=== PATIENT | male | born 1940 | race African-American/Black ===

== ENCOUNTER 2017-08-25 00:38 | Inpatient (IN) | payer MEDICARE, OTHER ==
[~2017-08-25] VITALS: Ht 170.2 cm; Wt 77.1 kg
[2017-08-25] VITALS (7 sets, daily range): BP systolic 75–131; BP diastolic 46–84
[2017-08-25] MEDS ORDERED: ONDANSETRON HCL 4MG/2ML VIAL IV STA (00:53)
[2017-08-25] MEDS ORDERED: SODIUM CHLORIDE 0.9% 1000ML BAG (SEPSIS BOLUS) IV ONE ×2 (01:00→02:30)
[2017-08-25] MEDS ORDERED: CEFTRIAXONE 1 G PREMIX 50 ML IV ONE (01:00)
[2017-08-25] MEDS ORDERED: AZITHROMYCIN 500 MG in DEXT 5% WATER 250 ML IV ONE (01:00)
[2017-08-25 01:52] LABS: HEMATOCRIT. 24.3 % (42.0-52.0); MEAN CORPUSCULAR HEMOGLOBIN 26.4 pg (28.0-32.0); MEAN CORPUSCULAR VOLUME 80.5 fL (80.0-94.0); MEAN PLATELET VOLUME 9.3 fl (7.4-10.4); RED BLOOD CELL COUNT 3.01 mill/uL (4.7-6.1); RED CELL DISTRIBUTION WIDTH 21.4 % (11.6-14.6)
[2017-08-25 01:55] LABS: INR 1.6; PROTHROMBIN TIME 16.6 sec (9.4-11.6)
[2017-08-25 02:03] LABS: PLATELET 30 x1000/uL (130-400)
[2017-08-25 02:08] LABS: CARBON DIOXIDE 13 mEq/L (21-32); CHLORIDE 106 mEq/L (98-107); ETHANOL BLOOD < 10 mg/dL; TROPONIN I < 0.02 ng/mL (0.00-0.04)
[2017-08-25] MEDS ORDERED: CALCIUM CHLORIDE 1GM/10ML SYR IV SCH (02:30)
[2017-08-25] MEDS ORDERED: SODIUM POLYSTYRENE SULFONATE 15 G/60 ML BOT PO SCH (02:30)
[2017-08-25] MEDS ORDERED: DEXTROSE 50% WATER 50ML SYRINGE IV SCH (02:30)
[2017-08-25] MEDS ORDERED: INSULIN REGULAR (HUMULIN R) 300UNITS/3ML IV SCH (02:30)
[2017-08-25] MEDS ORDERED: SODIUM BICARBONATE 8.4% 1 MEQ/ML 50ML SYR IV SCH (02:30)
[2017-08-25 02:43] LABS: NUCLEATED RED BLOOD CELLS 5 /100 WBC; PLATELET ESTIMATE DECREASED
[2017-08-25 03:29] LABS: AMMONIA < 10 uMol/L (<32)
[2017-08-25] MEDS ORDERED: HYDROCODONE/ACETAMINOPHEN 5/325MG TABLET PO ONE (05:00)
[2017-08-25] MEDS ORDERED: SODIUM CHLORIDE 0.9% 1,000 ML IV ONE (05:50)
[2017-08-25] MEDS ORDERED: INSULIN REGULAR (HUMULIN R) 300UNITS/3ML IV ONE (06:00)
[2017-08-25] MEDS ORDERED: DIPHENHYDRAMINE 50MG/ML VIAL IV PRN (15:00)
[2017-08-25] MEDS ORDERED: ONDANSETRON HCL 4MG/2ML VIAL IV PRN (15:00)
[2017-08-25] MEDS ORDERED: CLONIDINE 0.1MG TABLET PO PRN (15:00)
[2017-08-25] MEDS ORDERED: MORPHINE SULFATE 2 MG/ML CPJ (NOT FOR IM USE) IV PRN (15:00)
[2017-08-25] MEDS: INSULIN LISPRO 100 UNITS/ML SUBCUT SCH ×2 (18:00→21:00)
[2017-08-25] MEDS: BLOOD SUGAR DIAGNOSTIC STRIP TEST SCH ×2 (18:17→21:04)
[2017-08-25] MEDS ORDERED: ALBUMIN HUMAN 25GM/100ML (25%) IV NR (20:00)
[2017-08-26] VITALS (15 sets, daily range): BP systolic 88–104; BP diastolic 40–60
[2017-08-26] MEDS: CEFTRIAXONE 1 G PREMIX 50 ML IV SCH (00:48)
[2017-08-26 07:49] LABS: MEAN CORPUSCULAR HEMOGLOBIN 25.6 pg (28.0-32.0); MEAN CORPUSCULAR VOLUME 79.9 fL (80.0-94.0); MEAN PLATELET VOLUME 8.1 fl (7.4-10.4); RED BLOOD CELL COUNT 2.62 mill/uL (4.7-6.1); RED CELL DISTRIBUTION WIDTH 21.6 % (11.6-14.6)
[2017-08-26 08:01] LABS: CARBON DIOXIDE 24 mEq/L (21-32); CHLORIDE 105 mEq/L (98-107)
[2017-08-26 08:03] LABS: TROPONIN I 0.02 ng/mL (0.00-0.04)
[2017-08-26] MEDS ORDERED: NORCO 5/325 PO (08:22)
[2017-08-26] MEDS ORDERED: METH5TAB2 PO (08:22)
[2017-08-26] MEDS ORDERED: FURO40TA5 PO (08:22)
[2017-08-26] MEDS ORDERED: SPIR50TA26 PO (08:22)
[2017-08-26] MEDS ORDERED: DOXY100C2 PO (08:22)
[2017-08-26] MEDS ORDERED: SODI650T PO (08:22)
[2017-08-26] MEDS ORDERED: MENT118G TP (08:22)
[2017-08-26] MEDS: BLOOD SUGAR DIAGNOSTIC STRIP TEST SCH ×4 (08:42→21:15)
[2017-08-26 08:48] LABS: HEMATOCRIT. 20.9 % (42.0-52.0); HEMOGLOBIN. 6.7 g/dL (14.0-18.0); PLATELET 28 x1000/uL (130-400)
[2017-08-26] MEDS: INSULIN LISPRO 100 UNITS/ML SUBCUT SCH ×4 (08:52→21:15)
[2017-08-26 17:10] LABS: NUCLEATED RED BLOOD CELLS 10 /100 WBC; PLATELET ESTIMATE MARKEDLY DECREASED
[2017-08-27] VITALS (12 sets, daily range): BP systolic 85–118; BP diastolic 44–66
[2017-08-27] MEDS: ACETAMINOPHEN 325MG TABLET PO PRN (00:13)
[2017-08-27] MEDS: CEFTRIAXONE 1 G PREMIX 50 ML IV SCH (00:46)
[2017-08-27 07:35] LABS: HEMATOCRIT. 25.4 % (42.0-52.0); HEMOGLOBIN. 8.4 g/dL (14.0-18.0); MEAN CORPUSCULAR HEMOGLOBIN 26.8 pg (28.0-32.0); MEAN CORPUSCULAR VOLUME 80.6 fL (80.0-94.0); RED BLOOD CELL COUNT 3.15 mill/uL (4.7-6.1); RED CELL DISTRIBUTION WIDTH 20.1 % (11.6-14.6)
[2017-08-27] MEDS: INSULIN LISPRO 100 UNITS/ML SUBCUT SCH ×4 (07:54→21:15)
[2017-08-27] MEDS: BLOOD SUGAR DIAGNOSTIC STRIP TEST SCH ×4 (07:54→21:15)
[2017-08-27 09:18] LABS: PLATELET 26 x1000/uL (130-400)
[2017-08-27] MEDS ORDERED: ALBUMIN HUMAN 25GM/100ML (25%) IV SCH (10:00)
[2017-08-27 14:28] LABS: NUCLEATED RED BLOOD CELLS 9 /100 WBC; PLATELET ESTIMATE MARKEDLY DECREASED
[2017-08-28] VITALS (15 sets, daily range): BP systolic 93–132; BP diastolic 42–61
[2017-08-28] MEDS: CEFTRIAXONE 1 G PREMIX 50 ML IV SCH (00:58)
[2017-08-28] MEDS: INSULIN LISPRO 100 UNITS/ML SUBCUT SCH ×3 (08:00→20:52)
[2017-08-28] MEDS: BLOOD SUGAR DIAGNOSTIC STRIP TEST SCH ×3 (08:09→20:52)
[2017-08-28] MEDS: ACETAMINOPHEN 325MG TABLET PO PRN (12:14)
[2017-08-28 12:17] LABS: HEMATOCRIT. 25.8 % (42.0-52.0); HEMOGLOBIN. 8.4 g/dL (14.0-18.0); MEAN CORPUSCULAR HEMOGLOBIN 26.3 pg (28.0-32.0); MEAN PLATELET VOLUME 8.2 fl (7.4-10.4); RED BLOOD CELL COUNT 3.19 mill/uL (4.7-6.1); RED CELL DISTRIBUTION WIDTH 20.3 % (11.6-14.6)
[2017-08-28 12:25] LABS: PLATELET 34 x1000/uL (130-400)
[2017-08-28 13:19] LABS: NUCLEATED RED BLOOD CELLS 4 /100 WBC; PLATELET ESTIMATE MARKEDLY DECREASED
[2017-08-28 13:27] LABS: CARBON DIOXIDE 28 mEq/L (21-32); CHLORIDE 108 mEq/L (98-107)
[2017-08-29] VITALS (20 sets, daily range): BP systolic 109–134; BP diastolic 57–89
[2017-08-29] MEDS: CEFTRIAXONE 1 G PREMIX 50 ML IV SCH (00:01)
[2017-08-29] MEDS: INSULIN LISPRO 100 UNITS/ML SUBCUT SCH ×4 (08:00→20:59)
[2017-08-29] MEDS: BLOOD SUGAR DIAGNOSTIC STRIP TEST SCH ×4 (08:04→20:58)
[2017-08-30] VITALS (11 sets, daily range): BP systolic 97–120; BP diastolic 44–56
[2017-08-30] MEDS: CEFTRIAXONE 1 G PREMIX 50 ML IV SCH (00:44)
[2017-08-30] MEDS: INSULIN LISPRO 100 UNITS/ML SUBCUT SCH ×2 (17:40→21:00)
[2017-08-30] MEDS: BLOOD SUGAR DIAGNOSTIC STRIP TEST SCH ×2 (18:06→21:36)
[2017-08-30] MEDS: DEXTROSE 50% WATER 50ML SYRINGE IV PRN (22:35)
[2017-08-31] VITALS: BP 97/44
[2017-08-31] MEDS: CEFTRIAXONE 1,000 MG in DEXTROSE 5% WATER 50 ML IV SCH (00:26)
[2017-08-31 04:00] VITALS: BP 91/43
[2017-08-31] MEDS: INSULIN LISPRO 100 UNITS/ML SUBCUT SCH ×4 (06:27→20:16)
[2017-08-31] MEDS: BLOOD SUGAR DIAGNOSTIC STRIP TEST SCH ×4 (06:27→20:16)
[2017-08-31] MEDS: DEXTROSE 50% WATER 50ML SYRINGE IV PRN ×2 (06:34→12:13)
[2017-08-31 08:00] VITALS: BP 84/41
[2017-08-31 12:00] VITALS: BP 89/44
[2017-08-31] MEDS: ACETAMINOPHEN 325MG TABLET PO PRN (12:14)
[2017-08-31 16:00] VITALS: BP 78/40
[2017-08-31] MEDS ORDERED: DEXTROSE 5% WATER 1,000 ML IV SCH (17:00)
[2017-08-31 20:00] VITALS: BP 79/42
[2017-09-01] VITALS: BP 78/38
[2017-09-01] MEDS: CEFTRIAXONE 1,000 MG in DEXTROSE 5% WATER 50 ML IV SCH (01:10)
[2017-09-01 04:00] VITALS: BP 54/21
== END 2017-09-01 08:38 | disposition expired | DRG 871 ==
LOC: ER 00:38 → 5EST 02:23 → EDBEDREQ 02:25 → ENRESERV 07:18 → 8WST 08-30 16:10
PROVIDERS: ADMIT Internal Medicine; ATTEND Internal Medicine
PROC: 06HM33Z Insertion of Infusion Device into Right Femoral Vein, Percutaneous Approach (ICD-10-PCS; 2017-08-25)
PROC: B54BZZA Ultrasonography of Right Lower Extremity Veins, Guidance (ICD-10-PCS; 2017-08-25)
PROC: 5A1D70Z Performance of Urinary Filtration, Intermittent, Less than 6 Hours Per Day (ICD-10-PCS; 2017-08-25)
PROC: 30233N1 Transfusion of Nonautologous Red Blood Cells into Peripheral Vein, Percutaneous Approach (ICD-10-PCS; 2017-08-26)
PROC: 30233R1 Transfusion of Nonautologous Platelets into Peripheral Vein, Percutaneous Approach (ICD-10-PCS; principal; 2017-08-27)
PROC: 5A1D70Z Performance of Urinary Filtration, Intermittent, Less than 6 Hours Per Day (ICD-10-PCS; 2017-08-27)
DX: A41.9 Sepsis, unspecified organism (principal); J96.00 Acute respiratory failure, unspecified whether with hypoxia or hypercapnia; E43 Unspecified severe protein-calorie malnutrition; G93.41 Metabolic encephalopathy; N17.9 Acute kidney failure, unspecified; D61.818 Other pancytopenia; T86.11 Kidney transplant rejection; E11.22 Type 2 diabetes mellitus with diabetic chronic kidney disease; N18.6 End stage renal disease; E87.2 Acidosis; C22.9 Malignant neoplasm of liver, not specified as primary or secondary; R17 Unspecified jaundice; Z94.0 Kidney transplant status; Z66 Do not resuscitate; E87.5 Hyperkalemia; E11.65 Type 2 diabetes mellitus with hyperglycemia; E86.9 Volume depletion, unspecified; I95.9 Hypotension, unspecified; Z51.5 Encounter for palliative care; Z79.899 Other long term (current) drug therapy; Z86.73 Personal history of transient ischemic attack (TIA), and cerebral infarction without residual deficits; Z68.26 Body mass index [BMI] 26.0-26.9, adult
CPT/HCPCS: 36415; 36556; 70450; 71010; 74176; 76937; 80048; 80053; 82010; 82140; 82962; 83605; 83690; 83880; 84484; 85025; 85610; 86850; 86900; 86920; 86945; 87040; 92610; 93005; 96361; 96365; 96367; 96375; 99291; A6261; C1752; C1893; G0482; J0456; J0696; J1815; J2270; J2405; J3490; J7030; J7040; J7060; J7070; P9016; P9034; P9047